=== PATIENT | female | born 1955 | race Caucasian/White ===

== ENCOUNTER 2023-08-01 16:18 | Emergency (ER) | payer MEDICARE, SELFPAY ==
[2023-08-01 16:24] VITALS: BP 193/81; PULSE 75; RESP 16; TEMP 35.6; O2SAT 97; BMI 27.5
--- NOTE | 2023-08-01 16:27 | CRLHL7_ITS ---
For Patients: As a result of the Cures Act, medical imaging exams and procedure reports are released immediately into your electronic medical record. You may view this report before your referring provider. If you have questions, please contact your health care provider. Indication: Fall. Pain Technique: Three views left ankle. Comparison: None. Findings/Impression: No acute displaced fracture or malalignment. No soft tissue swelling. Joint spaces are maintained. Bony mineralization is age appropriate. Dictated by Cheng Fermin MD @ 08/01/2023 5:42:19 PM (Electronically Signed)
--- NOTE | 2023-08-01 16:33 | ED.LOWEXIN ---
HPI - Extremity Injury (Lower) General Time Seen by Provider: 16:33 Date Seen: 08/01/23 Chief Complaint: Extremity Pain/Injury, Lower Stated Complaint: fall, L ankle pain Time Seen by Provider: 08/01/23 16:33 Source: patient and RN notes reviewed Limitations: no limitations History of Present Illness HPI Narrative: Dion Is a very pleasant 67-year-old female previously healthy who comes to the emergency room for evaluation regarding left ankle pain and inability to bear weight. Patient was noted to have fallen last night as she was turning a corner in her house. Because of the discomfort she was unable to get off the floor and states she slept on the floor last night. She is here with her today with complaints of left ankle pain and no other complaints. She is able to move her toes. Most of her pain is on the outside of her left ankle. Movement greatly increases her discomfort. She is unable to bear weight today. No medications at this time. No other injury reported. Related Data Home Medications Medication Instructions Recorded Confirmed albuterol sulfate 90 mcg/actuation 2 puff inhalation Q4H PRN wheezing 08/01/23 08/01/23 aerosol inhaler alprazolam 0.5 mg tablet 0.5 mg PO BID PRN anxiety 08/01/23 08/01/23 citalopram 20 mg tablet 20 mg PO DAILY 08/01/23 08/01/23 rosuvastatin 10 mg tablet 10 mg PO QPM 08/01/23 08/01/23 zolpidem 5 mg tablet 5 mg PO QPM PRN insomnia 08/01/23 08/01/23 Allergies Allergy/AdvReac Type Severity Reaction Status Date / Time No Known Drug Allergies Allergy Verified 08/01/23 16:23 Review of Systems Status of ROS: Reports: 6 or more systems reviewed and unremarkable except as noted in History and below PFSH PFS Social History Smoking Status: Never smoker How often do you have a drink containing alcohol: never AUDIT-C Alcohol total score: 0 Non-prescribed substance use: denies use Exam Narrative: Exam Narrative: Alert and oriented nontoxic in appearance. No respiratory distress. GCS of 15 Examination of the lower ankle shows significant edema over the lateral malleolus. Lateral ligaments also with tenderness. Ecchymosis is noted on the lateral ankle and inferiorly over the foot. No significant tenderness over the base of the 5th metatarsal. Able to flex and extend her toes. No pain with palpation over the navicular. Const: Vital Signs, click to edit/add: Vital Signs - 24 hr 08/01/23 16:24 08/01/23 19:00 Temperature 96.1 F L 96.1 F L Pulse Rate [Pulse Oximeter] 75 75 Respiratory Rate 16 16 Blood Pressure [Ri ght Upper Arm] 193/81 H 162/79 H Pulse Oximetry 97 Oxygen Delivery Me thod Room Air Documenting provider has reviewed patient's vital signs: yes Course Course ED Course: Plan on ankle x-ray at this time. Reevaluation(s) Reevaluation #1: X-ray of the ankle does not show any obvious fracture and thus I have ordered x-ray of the foot. Vital Signs Vital signs: Initial Vital Signs Temperature 96.1 F L 08/01/23 16:24 Temperature Source Temporal Artery Scan 08/01/23 16:24 Pulse Rate 75 08/01/23 16:24 Pulse Rhythm Regular 08/01/23 16:24 Respiratory Rate 16 08/01/23 16:24 Blood Pressure 193/81 H 08/01/23 16:24 Blood Pressure Mean 118 H 08/01/23 16:24 Blood Pressure Position Sitting 08/01/23 16:24 Pulse Oximetry 97 08/01/23 16:24 Oxygen Delivery Method Room Air 08/01/23 16:24 Vital Signs Temperature 96.1 F L 08/01/23 16:24 Pulse Rate 75 08/01/23 16:24 Respiratory Rate 16 08/01/23 16:24 Blood Pressure 193/81 H 08/01/23 16:24 Pulse Oximetry 97 08/01/23 16:24 Oxygen Delivery Method Room Air 08/01/23 16:24 Temperature 96.1 F L 08/01/23 19:00 Pulse Rate 75 08/01/23 19:00 Respiratory Rate 16 08/01/23 19:00 Blood Pressure 162/79 H 08/01/23 19:00 Pulse Oximetry 97 08/01/23 16:24 Oxygen Delivery Method Room Air 08/01/23 16:24 MDM - Extremity Injury (Lower) MDM Narrative Medical decision making narrative: 1. Left ankle sprain-patient noted to have initial negative x-rays of the left ankle. Given the swelling and reports of inability to bear weight I did add foot views which at this time are negative. Patient offered cam walker but she states that her niece has a splint that she would like to use. We will rewrap her ankle with the Yifan wrap and she will use crutches for partial weight-bearing. Ibuprofen or Tylenol as needed for pain. Icing as needed. Follow up with primary MD if not improving in the next 5 days. I told the patient she may need further films or possibly MRI. 2. Disposition-home at this time. Return for worsening symptoms and as needed. Foot x-ray does not show any obvious fractures per radiological over-read. Medical Records Attestation: I reviewed the patient's medical records. Imaging Data Left ankle x-ray: Attestation: I have reviewed the pertinent imaging results. My impression: By my read no obvious fracture. Radiologist's impression: Findings/Impression: No acute displaced fracture or malalignment. No soft tissue swelling. Joint spaces are maintained. Bony mineralization is age appropriate. Foot x-ray: Attestation: I have reviewed the pertinent imaging results. My impression: I do not do not note any obvious acute fracture Radiologist's impression: No acute displaced fracture or malalignment. No soft tissue swelling. Joint spaces are maintained. Bony mineralization is age appropriate. Discharge Plan Discharge Clinical Impression: Ankle sprain and strain Patient Disposition: Home, Self-Care Condition: Unchanged Additional Instructions: 1. At this time recommend partial weight-bearing. Use crutches when walking and I would keep your ankle in a boot over the next 48 hours. You may still continue to ice it as needed. Ibuprofen or Tylenol may be used for discomfort 2. Follow-up with your primary physician if you are not improving. You may need repeat x-rays, MRI or possibly physical therapy. Return to the emergency room as needed. Your blood pressure is elevated today which can happen with pain. Please follow-up with your primary MD for a recheck. Prescriptions: No Action alprazolam 0.5 mg tablet 0.5 mg PO BID PRN (Reason: anxiety) citalopram 20 mg tablet 20 mg PO DAILY zolpidem 5 mg tablet 5 mg PO QPM PRN (Reason: insomnia) albuterol sulfate 90 mcg/actuation HFA aerosol inhaler 2 puff INHALATION Q4H PRN (Reason: wheezing) rosuvastatin 10 mg tablet 10 mg PO QPM Follow Up/Referrals: Provider,Not a Local [Primary Care Provider] - Stand Alone Forms: [email or web address] Info Instructions
--- NOTE | 2023-08-01 16:41 | ED.NURSE ---
Ice pack provided.
--- NOTE | 2023-08-01 17:49 | CRLHL7_ITS ---
For Patients: As a result of the Century Cures Act, medical imaging exams and procedure reports are released immediately into your electronic medical record. You may view this report before your referring provider. If you have questions, please contact your health care provider. Indication: Small. Technique: Two views left foot. Comparison: None. Findings/Impression: No acute displaced fracture or malalignment. No soft tissue swelling. Joint spaces are maintained. Bony mineralization is age appropriate. Dictated by Cheng Fermin MD @ 08/01/2023 7:12:05 PM (Electronically Signed)
[2023-08-01 19:00] VITALS: BP 162/79; PULSE 75; RESP 16; TEMP 35.6
--- NOTE | 2023-08-01 19:01 | ED.NURSE ---
Pt declines cam walker, states she has one from a family member that she can use. Pt fitted with crutches and educated on correct use. Pt tolerates well.
== END 2023-08-01 18:58 | disposition home or self-care (01) ==
PROVIDERS: Emergency Provider Family Medicine
DX: S93.402A Sprain of unspecified ligament of left ankle, initial encounter (principal); W19.XXXA Unspecified fall, initial encounter
CPT/HCPCS: 73610; 73620; 99283